=== PATIENT | male | born 2005 | race African-American/Black ===

== ENCOUNTER 2024-10-17 16:31 | Emergency (ER) | payer MEDICAID ==
[~2024-10-17] VITALS: Ht 170.2 cm; Wt 73.0 kg
[2024-10-17 16:41] VITALS: O2SAT 98
[2024-10-17 16:45] VITALS: BP 147/72; PULSE 72; RESP 18; TEMP 37.2; O2SAT 100
[2024-10-17 17:09] LABS: BASOPHILS % 0.6 % (0.0-2.0); EOSINOPHILS % 0.5 % (0.0-5.0); HEMATOCRIT. 44.5 % (42.0-52.0); HEMOGLOBIN. 14.6 g/dL (14.0-18.0); LYMPHOCYTES % 29.2 % (20.0-50.0); MEAN PLATELET VOLUME 9.1 fl (7.4-10.4); MONOCYTES % 6.6 % (2.0-8.0); NEUTROPHILS % 63.1 % (40.0-76.0); PLATELET 173 x1000/uL (130-400); RED BLOOD CELL COUNT 4.63 mill/uL (4.7-6.1); RED CELL DISTRIBUTION WIDTH 13.0 % (11.6-14.6)
[2024-10-17 17:22] LABS: CREATININE 1.2 mg/dL (0.6-1.3); UREA NITROGEN BLOOD 10 mg/dL (9-23)
[2024-10-17 17:24] LABS: TROPONIN I HIGH SENSITIVITY 4 ng/L (3.0-53)
[2024-10-17 19:16] LABS: ASPARTATE AMINOTRANSFERASE 26 IU/L (<34); BILIRUBIN DIRECT 0.3 mg/dL (<=3.0); BILIRUBIN TOTAL 0.8 mg/dL (0.1-1.0); PROTEIN TOTAL 8.2 g/dL (6.0-8.3)
[2024-10-19] MEDS ORDERED: MAG355OR21 MT (18:54)
[2024-10-19] MEDS ORDERED: FAMO20TA8 MT (18:54)
== END 2024-10-18 00:29 | disposition home or self-care (01) ==
LOC: ER 16:41
DX: R07.89 Other chest pain (principal)
CPT/HCPCS: 36415; 71045; 80048; 80076; 83880; 84484; 85025; 93005; 99285

== ENCOUNTER 2024-10-19 13:49 | Emergency (ER) | payer MEDICAID ==
[~2024-10-19] VITALS: Ht 172.7 cm; Wt 72.5 kg
[2024-10-19 13:50] VITALS: TEMP 36.9; O2SAT 100
[2024-10-19 15:51] LABS: BASOPHILS % 0.8 % (0.0-2.0); EOSINOPHILS % 1.4 % (0.0-5.0); HEMATOCRIT. 46.6 % (42.0-52.0); HEMOGLOBIN. 15.4 g/dL (14.0-18.0); LYMPHOCYTES % 38.7 % (20.0-50.0); MEAN PLATELET VOLUME 9.7 fl (7.4-10.4); MONOCYTES % 8.1 % (2.0-8.0); NEUTROPHILS % 51.0 % (40.0-76.0); PLATELET 180 x1000/uL (130-400); RED BLOOD CELL COUNT 4.87 mill/uL (4.7-6.1); RED CELL DISTRIBUTION WIDTH 12.9 % (11.6-14.6)
[2024-10-19 16:04] LABS: CREATININE 1.2 mg/dL (0.6-1.3); UREA NITROGEN BLOOD 10 mg/dL (9-23)
[2024-10-19 16:05] LABS: TROPONIN I HIGH SENSITIVITY 4 ng/L (3.0-53)
[2024-10-19 17:42] LABS: ASPARTATE AMINOTRANSFERASE 21 IU/L (<34); BILIRUBIN DIRECT 0.3 mg/dL (<=3.0); BILIRUBIN TOTAL 1.0 mg/dL (0.1-1.0)
[2024-10-19 17:43] LABS: PROTEIN TOTAL 8.2 g/dL (6.0-8.3)
[2024-10-19] MEDS: FAMOTIDINE 20MG TABLET PO ONE (18:05)
[2024-10-19] MEDS: MAGNESIUM/ALUMINUM HYDROXIDE/SIMETHICONE 30ML UDC PO ONE (18:05)
[2024-10-19] MEDS ORDERED: FAMO20TA8 MT (18:54)
[2024-10-19] MEDS ORDERED: MAG355OR21 MT (18:54)
[2024-10-19 19:17] VITALS: BP 115/87; PULSE 56; RESP 13; O2SAT 100
== END 2024-10-19 19:18 | disposition home or self-care (01) ==
LOC: ER 13:49
DX: R07.89 Other chest pain (principal)
CPT/HCPCS: 36415; 71045; 76705; 80048; 80076; 84484; 85025; 93005; 99285